=== PATIENT | male | born 2000 | race Caucasian/White ===

== ENCOUNTER 2025-03-19 02:36 | Emergency (ER) | payer BC, OTHER, SELFPAY ==
--- NOTE | 2025-03-19 02:47 | EKG_ITS ---
[facility] Test Date: 2025-03-19 Pat Name: DOUGLAS TONEY Department: Room: - Gender: Male [employer]: : 2000 Requested By: Stone Dejesus Order Number: [id number] Reading MD: Stone Dejesus Measurements Intervals [place] Rate: 70 P: 29 TX: 147 QRS: 8 QRSD: 102 T: 20 QT: 362 QTc: 391 Interpretive Statements SINUS RHYTHM No previous ECG available for comparison /store/[email or web address]/[id number]/[id number].pdf
[2025-03-19 03:07] VITALS: BP 136/90; PULSE 75; RESP 17; TEMP 36.8; O2SAT 99
--- NOTE | 2025-03-19 05:26 | PD.EDRME ---
Rapid Medical Screening Exam RME Arrival date/time: 03/19/25 02:36 24M with no significant PMH presents to ED with tight CP today as well as indigestion. Patient took some TUMs and felt better. Patient then Google that he might be having a heart attack and came to ED to be sure. Patient states since onset, symptoms are improved. Patient states he's amenable to seeing if the Valium works and if not, then to do some additional tests. Chief Complaint: Chest Pain Vital signs: Vital Signs Temperature 98.2 F 03/19/25 03:07 Pulse Rate 75 03/19/25 03:07 Respiratory Rate 17 03/19/25 03:07 Blood Pressure 136/90 H 03/19/25 03:07 Pulse Oximetry (%) 99 03/19/25 03:07 Oxygen Delivery Method Room Air 03/19/25 03:07
[2025-03-19] MEDS: DIAZEPAM 5 MG TABLET PO (05:39)
--- NOTE | 2025-03-19 06:29 | EDNOTE_ITS ---
<Statement entered by Brittany Catalan MD - 03/20/25 14:30> As co-signing physician, I was present and available for consult prn. I concur with the plan and care as documented by the midlevel provider. ED Chest Pain RME/HPI General Chief Complaint: Chest Pain Stated Complaint: Chest Pain/indegestion/cant sleep Time Seen by Provider: 03/19/25 06:28 Arrival date/time: 03/19/25 02:36 24M with no significant PMH presents to ED with tight CP today as well as indigestion. Patient took some TUMs and felt better. Patient then Google that he might be having a heart attack and came to ED to be sure. Patient states since onset, symptoms are improved. Patient states he's amenable to seeing if the Valium works and if not, then to do some additional tests. Limitations: no limitations RME / HPI RME / HPI narrative: 03/19/25 02:36 24M with no significant PMH presents to ED with tight CP today as well as indigestion. Patient took some TUMs and felt better. Patient then Google that he might be having a heart attack and came to ED to be sure. Patient states since onset, symptoms are improved. Patient states he's amenable to seeing if the Valium works and if not, then to do some additional tests. Related Data Previous Rx's ?Medication ?Instructions ?Recorded acetaminophen 650 mg 650 mg PO Q8H PRN fever or p ain 11/24/19 tablet,extended release #30 tabs ibuprofen 600 mg tablet 600 mg PO Q8H PRN fever or p ain 11/24/19 #30 tabs Allergies Allergy/AdvReac Type Severity Reaction Status Date / Time No Known Allergies Allergy Verified 11/24/19 17:19 Review of Systems Review of Systems Systems Reviewed: All systems reviewed, normal except as documented Constitutional Constitutional: Reports system reviewed and no additional complaints, except as documented, Denies fever(s) and Denies headache(s) Eyes Eyes: Reports system reviewed and no additional complaints, except as documented and Denies blurry vision ENT Ears, Nose, Mouth, and Throat: Reports system reviewed and no additional complaints, except as documented, Denies headache(s), Denies nasal congestion and Denies nasal discharge Cardiovascular Cardiovascular: Reports system reviewed and no additional complaints, except as documented, Reports chest pain and Denies dyspnea Respiratory Respiratory: Reports system reviewed and no additional complaints, except as documented, Denies chest congestion, Denies cough and Denies dyspnea Gastrointestinal Gastrointestinal: Reports system reviewed and no additional complaints, except as documented and Denies abdominal pain Integumentary/Breasts Skin/Breast: Reports system reviewed and no additional complaints, except as documented and Denies rash Neurologic Neurologic: Reports system reviewed and no additional complaints, except as documented, Reports as per HPI and Denies headache(s) Past Medical History Past Medical History CARDIAC: Negative Congestive Heart Failure RESPIRATORY: Positive Asthma; Negative Chronic Obstructive Pulmonary Disease (COPD) GENITOURINARY: Negative Renal Disease ENDOCRINE: Negative Diabetes Mellitus Type 1 or Diabetes Mellitus Type 2 Social History SMOKING STATUS: Never smoker ED Exam General Limitations: Present no limitations General appearance: Present alert and in no apparent distress Head Head exam: Present atraumatic Eye Eye exam: Present normal appearance, PERRL and EOMI; Absent conjunctival injection ENT ENT exam: Present normal exam, normal oropharynx and mucous membranes moist Neck Neck exam: Present normal inspection, full ROM and trachea midline Chest Chest inspection: Present normal inspection and symmetric chest wall rise Respiratory Respiratory exam: Present normal lung sounds bilaterally Cardiovascular Cardiovascular exam: Present regular rate, normal rhythm and normal heart sounds; Absent bradycardia, tachycardia, irregular rhythm or JVD Abdominal Exam Abdominal exam: Present soft and normal bowel sounds; Absent distention, tenderness, guarding, rebound or rigidity Extremities Exam Extremities exam: Present normal inspection and full ROM Back Exam Back exam: Present normal inspection and full ROM Neurological Exam Neurological exam: Present alert, oriented X3 and CN II-XII intact Psychiatric Psychiatric exam: Present normal affect and normal mood Skin Skin exam: Present warm, dry, intact and normal color Course Quality Measures none Orders Category Date Time Status EKG (ED ONLY) *Do not use* NOW Care 03/19/25 02:48 Completed EKG (ED Only) Stat Exams 03/19/25 02:47 Draft XR chest 2V Stat Exams 03/19/25 06:24 Ordered Diazepam [Valium] Med 03/19/25 05:21 Discontinued 5 mg PO X1 ONE Vital Signs Vital signs: Vital Signs Temperature 98.2 F 03/19/25 03:07 Pulse Rate 75 03/19/25 03:07 Respiratory Rate 17 03/19/25 03:07 Blood Pressure 136/90 H 03/19/25 03:07 Pulse Oximetry (%) 99 03/19/25 03:07 Oxygen Delivery Method Room Air 03/19/25 03:07 O2 saturation 99% on room air with normal limits Procedures -ED EKG Interpretation #1: Date of EK03/19/25 Time of EK:11 Rate: 70 Interpretation: Interpreted by me EKG Impression: Normal sinus rhythm, No acute ST-T changes, No ectopy, No ischemic changes, Normal QRS and Normal intervals Chest Pain MDM Narrative MDM Narrative:: 24M with no significant PMH presents to ED with tight CP today as well as indigestion. Patient took some TUMs and felt better. Patient then Google that he might be having a heart attack and came to ED to be sure. Patient states since onset, symptoms are improved. Patient states he's amenable to seeing if the Valium works and if not, then to do some additional tests. At the time my evaluation of this patient which was approximately 4 hours after he arrived patient reports no chest pain no shortness of breath no headache dizziness weakness and in fact patient is asking to go home. I did ask the patient if he would like to do lab work and imaging as I did order it patient reports he does not want any lab work or imaging he states he feels better and feels like he probably just got anxious patient reports absolutely no chest pain or shortness of breath at this time Patient was encouraged to return for worsening symptoms Patient discharged home in no distress to follow-up with primary care doctor in the next 24 to 48 hours and for any worsening symptoms to return to the ER immediately Patient data External records reviewed:: [facility] previous records Clinical information provided by:: patient Social determinants that could affect healthcare access:: none Patient has the following chronic illnesses:: None How is presenting disease/condition affected by chronic disease/condition?: no chronic disease Evaluation data The following diagnostics were reviewed and interpreted by me:: EKG tracing(s) Lab and/or radiology exams considered but not ordered:: EKG obtained Interpretation Summary: Reviewed by me Medications / Prescriptions Medications or Prescriptions considered but not ordered:: Given Medication administrations:: Medication Administration History Discontinued Medications Diazepam (Diazepam 5 Mg Tablet) 5 mg PO X1 ONE Stop: 03/19/25 05:22 Last Admin: 03/19/25 05:39 Dose: 5 mg Documented By: SE Given Consultations Consultation(s) initiated? (list below): No Diagnosis Chest Pain Differential Diagnosis: pneumothorax, atypical chest pain, st elevation myocardial infarction and costochondritis Most likely diagnosis given after review of the tests above:: Anxiety, chest pain Admission Indicated Admission indicated?: not indicated Admission Request Was there a request for admission?: No Disposition Plan Disposition Plan: Discharge Discharge Attestation Discharge Attestation: The patient and all family members were given an opportunity to ask questions and understood the discharge instructions. Discharge instructions specifically effects, indications for sooner follow up or return to the emergency department, and the expected course of current diagnosis. Patient condition: Stable Discharge Plan Plan Patient Disposition: HOME (Self Care) Disposition Comment: Stable Prescriptions/Referrals Prescriptions/Med Rec: No Action acetaminophen 650 mg tablet extended release 650 mg PO Q8H PRN (Reason: fever or pain) Qty: 30 0RF Rx Instructions: swallow whole; do not crush, chew, break, dissolve, cut, or open ibuprofen 600 mg tablet 600 mg PO Q8H PRN (Reason: fever or pain) Qty: 30 0RF Rx Instructions: prn pain / fever Problem List Clinical Impression: Chest pain, Anxiety Patient/Caregiver Discharge Instructions Education Materials: ED Chest Pain, Noncardiac Additional Instructions: Please follow up with your primary care doctor in the next 24-48hrs for any worsening symptoms return here immediately Print Language: Nauruan Stand Alone Forms: Marilyn Award Info., Patient Portal Info Letter PA/DEBBIE Supervising Physician PA/AUTO CLAIM REPRESENTATIVE Supervising Physician: Dr. CATALAN
== END 2025-03-19 06:32 | disposition home or self-care (01) ==
LOC: SERX 06:40
PROVIDERS: Emergency Provider Emergency Medicine
DX: R07.9 Chest pain, unspecified (principal); F41.9 Anxiety disorder, unspecified
CPT/HCPCS: 84484; 93005; 99283; A9270

== ENCOUNTER → 2025-04-26 | Outpatient (CLI) | payer OTHER, SELFPAY ==
[2025-04-26 11:08] LABS: Collection Type, Urine Clean Catch; Squamous Epithelial Cell,Urine 0 /hpf (0-5)
[2025-04-26 11:30] LABS: Basophils % (Auto) 0 % (0-2.5); Eosinophils # (Auto) 0.1 Thou/mm3 (0.0-0.5); Eosinophils % (Auto) 2 % (0-10); Hematocrit 40.4 % (41.0-53.0); Immature Granulocytes % (Auto) 0 % (0-0); Immature Granulocytes Auto 0.01 Thou/mm3 (0.00-0.00); Lymphocytes # (Auto) 2.1 Thou/mm3 (1.0-4.8); Lymphocytes % (Auto) 39 % (10-50); Mean Corpuscular HGB Conc 34.7 g/dl (31.0-37.0); Mean Corpuscular Hemoglobin 29.9 pg (25.0-35.0); Mean Corpuscular Volume 86 fL (80-100); Monocytes # (Auto) 0.4 Thou/mm3 (0.0-0.8); Monocytes % (Auto) 7 % (0-12); Neutrophils # (Auto) 2.8 Thou/mm3 (1.8-7.7); Neutrophils % (Auto) 51 % (37-80); Nucleated Red Blood Cell % 0 /100 WBC (0); Platelet Count 236 Thou/mm3 (140-440); RDW Standard Deviation 38.8 fL (35.1-43.9); Red Blood Count 4.69 Miln/mm3 (4.50-5.90); White Blood Count 5.4 Thou/mm3 (3.8-10.6)
[2025-04-26 11:44] LABS: Glucose Estimated Average 97 mg/dL (80-131)
[2025-04-26 11:51] LABS: Alanine Aminotransferase 28 U/L (10-49); Albumin, Serum 4.7 gm/dL (3.5-5.0); Albumin/Globulin Ratio 2.2 (1.2-2.2); Alkaline Phosphatase 67 U/L (46-116); Anion Gap 10 (7-16); Aspartate Amino Transferase 25 U/L (0-34); BUN/Creatinine Ratio 5 Ratio (12-20); Bilirubin,Total 0.9 mg/dL (0.3-1.2); Blood Urea Nitrogen 6 mg/dL (9-23); Calcium 9.2 mg/dL (8.3-10.6); Calcium (Corrected) 9.2 mg/dL (8.5-10.1); Carbon Dioxide 23.9 mMol/L (20.0-31.0); Cardiac Risk Estimate 3.6 RATIO (4.0-6.7); Chloride 106 mMol/L (98-107); Cholesterol 153 mg/dL (132-200); Creatinine (Component) 1.2 mg/dL (0.6-1.3); Globulin 2.1 gm/dL (2.3-3.5); Glucose 105 mg/dL (74-106); HDL Cholesterol 43 mg/dL (40-60); LDL Cholesterol,Calculated 91 mg/dL (0-130); Osmolality,Calculated 277 (275-295); Sodium 140 mMol/L (136-145); Total Protein 6.8 gm/dL (5.7-8.2); Triglycerides 96 mg/dL (30-150); eGFR > 60 See Note
[2025-04-26 11:58] LABS: Bilirubin,Urine Negative (Negative); Blood,Urine Negative (Negative); Clarity,Urine Clear (Clear/Hazy); Color,Urine Colorless (Lt Yel-Yel); Culture Indicated,Urine Not Indicated; Glucose, Urine Negative (Negative); Ketones,Urine Negative (Negative); Leukocyte Esterase,Urine Negative (Negative); Nitrite,Urine Negative (Negative); Protein,Urine Negative (Neg - Trace); RBC,Urine 2 /hpf (0-3); Specific Gravity,Urine 1.007 (1.001-1.035); Urobilinogen,Urine Negative mg/dL (0.0-1.0); WBC,Urine 1 /hpf (0-5)
== END | disposition home or self-care (01) ==
LOC: COPL 10:17
PROVIDERS: PCP Physician Assistant; Referring Provider Physician Assistant; Visit Provider Physician Assistant
DX: I10 Essential (primary) hypertension (principal)
CPT/HCPCS: 36415; 80053; 80061; 81001; 83036; 84443; 85025

== ENCOUNTER → 2025-07-21 | Outpatient (CLI) | payer OTHER, SELFPAY ==
[2025-07-21 12:23] LABS: Urea Breath Test Negative (Negative)
== END | disposition home or self-care (01) ==
PROVIDERS: PCP Family Medicine; Referring Provider Registered Nurse; Visit Provider Registered Nurse
DX: R10.9 Unspecified abdominal pain (principal)
CPT/HCPCS: 83013; 83014

== ENCOUNTER → 2025-08-17 | Outpatient (CLI) | payer OTHER, SELFPAY ==
--- NOTE | 2025-08-17 14:30 | XR_ITS ---
Examination: Abdomen sonogram, complete Date and time of exam: August 17, 2025 1435 hours INDICATIONS: Umbilical pain beginning 2 weeks ago. Technique: Multiple real-time grayscale transabdominal sonographic images of the abdomen have been obtained. Findings: Gallbladder polyps, 7 mm, 6 mm, 5 mm, no gallstones, normal gallbladder wall Normal common bile duct 0.3 cm Pancreatic head 2.6 cm Aorta not enlarged. Liver 16.4 cm fatty infiltration Normal hepatopedal portal venous flow Patent IVC Right kidney 10.5 cm cortex 1.2 cm Left kidney 11.0 cm cortex 1.7 cm Mild renal scar formation Spleen 10.7 cm IMPRESSION: Small gallbladder polyps Negative for cholelithiasis, negative for cholecystitis
== END | disposition home or self-care (01) ==
LOC: CDIM 14:15
PROVIDERS: PCP Registered Nurse; Referring Provider Registered Nurse; Visit Provider Registered Nurse
DX: K82.4 Cholesterolosis of gallbladder (principal)
CPT/HCPCS: 76700